=== PATIENT | female | born 1935 | race Caucasian/White ===

== ENCOUNTER 2016-08-16 14:22 | Inpatient (IN) | payer OTHER, MEDICARE ==
[~2016-08-16] VITALS: Ht 149.9 cm; Wt 60.0 kg
[~2016-08-16 14:22] MED LIST: ASPI325T24 PO; DIGO0.12 PO; ENAL20TA PO; GLIP5 PO; GLUCTAB PO; LASI20TA PO; LOVA40TA PO; NIAC500T18 PO; NIFE20 PO; PROP1TAB66 PO; TERA5CAP3 PO
[2016-08-16 14:24] VITALS: BP 168/77; PULSE 105; RESP 15; TEMP 98.2; O2SAT 95
[2016-08-16] MEDS ORDERED: FLAX10002 PO (15:21)
[2016-08-16] MEDS ORDERED: GLIP5TAB8 PO (15:21)
[2016-08-16] MEDS ORDERED: MULT-135 PO (15:21)
[2016-08-16] MEDS ORDERED: ENAL20TA PO (15:21)
[2016-08-16] MEDS ORDERED: METF1000 PO (15:21)
[2016-08-16] MEDS ORDERED: PROP10TA6 PO (15:21)
[2016-08-16] MEDS ORDERED: GARL1CAP PO (15:21)
[2016-08-16] MEDS ORDERED: ALA1CRE TOP (15:21)
[2016-08-16] MEDS ORDERED: [UNRECOGNIZED DRUG - CODE] PO (15:21)
[2016-08-16] MEDS ORDERED: ASPI-156 PO (15:21)
[2016-08-16] MEDS ORDERED: NIFE1TAB85 PO (15:21)
[2016-08-16] MEDS ORDERED: OMEG5CAP PO (15:21)
[2016-08-16] MEDS ORDERED: NITR1SUB3 SL (15:21)
[2016-08-16] MEDS ORDERED: ATOR1TAB18 PO (15:21)
[2016-08-16] MEDS ORDERED: FURO20TA PO (15:21)
[2016-08-16] MEDS ORDERED: FENO160T PO (15:21)
[2016-08-16] MEDS ORDERED: DIGO0.25 PO (15:21)
[2016-08-16] MEDS ORDERED: CALC1TAB87 PO (15:23)
[2016-08-16] MEDS ORDERED: SODIUM CHLOR 0.9% 1000 ML INJ 1,000 ML IV SCH (15:24)
[2016-08-16] MEDS ORDERED: PANTOPRAZOLE INJ 80 MG in SODIUM CHLORIDE 0.9% INJ 35 ML IV ONE (15:30)
--- NOTE | 2016-08-16 15:32 | PD ---
HPI Chief Complaint: GI Complaint Time Seen by Provider: 15:02 Travel History International Travel<30 days: No Contact w/Intl Traveler<30days: No Traveled to known affect area: No History of Present Illness HPI 81-year-old female complains of bloody stool. Patient states the symptoms started this afternoon. Patient denies abdominal pain. Patient denies any nausea vomiting diarrhea. Patient denies any dysuria or frequency. Patient denies any vaginal discharge or bleeding. Patient denies any history GI bleed in the past. Patient on Ecotrin 325 mg daily. Patient has history hypertension , diabetes, dyslipidemia. Patient's on digoxin for rapid heartbeat. Patient denies any headache. Patient denies any chest pain or shortness of breath. PFSH Past Medical History Hx Anticoagulant Therapy: No Blood Disorders: No Cancer: No Cardiac Catheterization: Yes Cardiovascular Problems: Yes (STENTS) High Cholesterol: Yes Chemotherapy: No Cerebrovascular Accident: No Coronary Artery Disease: Yes Diabetes: Yes Patient Takes Glucophage: Yes Endocrine: Yes Gastrointestinal Disorders: No Genitourinary: No Hypertension: Yes Immune Disorder: No Implanted Vascular Access Dvce: No Musculoskeletal: No Neurologic: No Psychiatric: No Reproductive: No Respiratory: No Past Surgical History Appendectomy: Yes Coronary Stent: Yes (X3) Hysterectomy: Yes Tonsillectomy: Yes Other Surgery: Yes Social History Alcohol Use: No Tobacco Use: No Substance Use: No Allergies-Medications (Allergen,Severity, Reaction): Coded Allergies: No Known Allergies (Unverified , 01/10/14) Reported Meds & Prescriptions Reported Meds & Active Scripts Active Reported Calcium 600 with Vitamin D (Calcium Carbonate-Cholecalciferol) 600-400 mg-Unit Tab 1 Tab PO BID Ala Gualberto (Hydrocortisone (Topical)) 1 % Cre 1 Applic TOP DAILY Garlic 1,000 Mg Cap 1,000 Mg PO DAILY Fish Oil 1200 mg ([place]-3 Fatty Acids) 1 Cap Cap 1,200 Mg PO DAILY Flax Seed Oil 1000 mg (Flaxseed (Linseed)) 1 Cap Cap 1,000 Mg PO DAILY Multi Vitamin (Multiple Vitamin) 1 Tab Tab 1 Tab PO DAILY Ecotrin (Aspirin) 325 Mg Tab 325 Mg PO DAILY Nitroglycerin SL (Nitroglycerin) 0.4 Mg Subl 0.4 Mg SL DIRECTED PRN ONE TABLET UNDER THE TONGUE NEEDED FOR CHEST PAIN, MAY REPEAT EVERY FIVE MINUTES FOR A TOTAL OF 3 DOSES OR CALL 911 IF NO RELIEF Propranolol (Propranolol HCl) 10 Mg Tab 10 Mg PO DIRECTED PRN Niacin TR (Niacin) 500 Caper 500 Mg PO BID Glipizide 5 Mg Tab 2.5 Mg PO BIDAC Take 30 minutes before a meal Furosemide 20 Mg Tab 20 Mg PO BID Enalapril (Enalapril Maleate) 20 Mg Tab 20 Mg PO BID Digoxin 0.25 Mg Tab 0.25 Mg PO DAILY Atorvastatin (Atorvastatin Calcium) 80 Mg Tab 80 Mg PO HS Fenofibrate 160 Mg Tab 160 Mg PO DAILY Procardia XL (Nifedipine) 30 Mg Tab 30 Mg PO BID Metformin (Metformin HCl) 1,000 Mg Tab 1,000 Mg PO AC DINNER With meals Review of Systems General / Constitutional: No: Fever Eyes: No: Visual changes HENT: No: Headaches Cardiovascular: No: Chest Pain or Discomfort Respiratory: No: Shortness of Breath Gastrointestinal: Positive: Hematochezia, No: Abdominal Pain Genitourinary: No: Dysuria Musculoskeletal: No: Pain Skin: No Rash Neurologic: No: Weakness Psychiatric: No: Depression Endocrine: No: Polydipsia Hematologic/Lymphatic: No: Easy Bruising Physical Exam Narrative GENERAL: Well-nourished, well-developed patient. SKIN: Warm and dry. HEAD: Normocephalic. EYES: No scleral icterus. No injection or drainage. NECK: Supple, trachea midline. No JVD or lymphadenopathy. CARDIOVASCULAR: Regular rate and rhythm without murmurs, gallops, or rubs. RESPIRATORY: Breath sounds equal bilaterally. No accessory muscle use. GASTROINTESTINAL: Abdomen soft, non-tender, nondistended. Rectal exam reveals bright red blood per rectum. Hemoccult positive. No active bleeding coming out from rectum. MUSCULOSKELETAL: No cyanosis, or edema. BACK: Nontender without obvious deformity. No CVA tenderness. Neurologic exam normal. Data Data Last Documented VS Vital Signs Date Time Temp Pulse Resp B/P Pulse Ox O2 Delivery O2 Flow Rate FiO2 08/16/16 15:43 97 Nasal Cannula 2 08/16/16 15:01 18 08/16/16 14:24 98.2 105 168/77 Orders Complete Blood Count With Diff (08/16/16 15:24) Comprehensive Metabolic Panel (08/16/16 15:24) Prothrombin Time / Inr (Pt) (08/16/16 15:24) Act Partial Throm Time (Ptt) (08/16/16 15:24) Urinalysis - C+S If Indicated (08/16/16 15:24) Type And Screen (08/16/16 15:24) Chest, Single Ap (08/16/16 15:24) Ecg Monitoring (08/16/16 15:24) Iv Access Insert/Monitor (08/16/16 15:24) Oximetry (08/16/16 15:24) Sodium Chlor 0.9% 1000 Ml Inj (Ns 1000 M (08/16/16 15:24) Pantoprazole Inj (Protonix Inj) (08/16/16 15:30) Pantoprazole Inj (Protonix Inj) (08/16/16 15:30) Labs Laboratory Tests Test 08/16/16 08/16/16 15:31 15:40 White Blood Count 8.1 TH/MM3 Red Blood Count 3.83 MIL/MM3 Hemoglobin 11.2 GM/DL Hematocrit 33.1 % Mean Corpuscular Volume 86.5 FL Mean Corpuscular Hemoglobin 29.1 PG Mean Corpuscular Hemoglobin 33.7 % Concent Red Cell Distribution Width 15.1 % Platelet Count 286 TH/MM3 Mean Platelet Volume 7.1 FL Neutrophils (%) (Auto) 59.9 % Lymphocytes (%) (Auto) 26.9 % Monocytes (%) (Auto) 10.4 % Eosinophils (%) (Auto) 2.1 % Basophils (%) (Auto) 0.7 % Neutrophils # (Auto) 4.9 TH/MM3 Lymphocytes # (Auto) 2.2 TH/MM3 Monocytes # (Auto) 0.8 TH/MM3 Eosinophils # (Auto) 0.2 TH/MM3 Basophils # (Auto) 0.1 TH/MM3 CBC Comment DIFF FINAL Differential Comment Prothrombin Time 11.5 SEC Prothromb Time International 1.0 RATIO Ratio Activated Partial 23.8 SEC Thromboplast Time Sodium Level 139 MEQ/L Potassium Level 4.1 MEQ/L Chloride Level 103 MEQ/L Carbon Dioxide Level 27.8 MEQ/L Anion Gap 8 MEQ/L Blood Urea Nitrogen 25 MG/DL Creatinine 1.62 MG/DL Estimat Glomerular Filtration 30 ML/MIN Rate Random Glucose 95 MG/DL Calcium Level 9.6 MG/DL Total Bilirubin 0.3 MG/DL Aspartate Amino Transf 29 U/L (AST/SGOT) Alanine Aminotransferase 38 U/L (ALT/SGPT) Alkaline Phosphatase 29 U/L Total Protein 7.7 GM/DL Albumin 4.0 GM/DL Blood Type A POSITIVE Antibody Screen NEGATIVE Blood Bank Comment Urine Color LIGHT-YELLOW Urine Turbidity CLEAR Urine pH 8.0 Urine Specific [place] 1.006 Urine Protein 30 mg/dL Urine Glucose (UA) NEG mg/dL Urine Ketones NEG mg/dL Urine Occult Blood MOD Urine Nitrite NEG Urine Bilirubin NEG Urine Urobilinogen LESS THAN 2.0 MG/DL Urine Leukocyte Esterase NEG Urine RBC 36 /hpf Urine WBC 1 /hpf Urine Squamous Epithelial 1 /hpf Cells Urine Bacteria RARE /hpf Urine Mucus FEW /lpf Microscopic Urinalysis Comment CULT NOT INDICATED MDM Medical Decision Making Medical Screen Exam Complete: Yes Emergency Medical Condition: Yes Interpretation(s) 1645 PM. CBC within normal limit. Hemoglobin 11.2 hematocrit 33.1. BUN 25. Creatinine 1.62. UA positive for RBC and few bacteria. Differential Diagnosis Differential diagnosis including hemorrhoidal bleed, AV malformation, diverticulosis, diverticulitis, GI lesions. Narrative Course 81-year-old female with bloody stool. Normal saline solution 1 25 cc an hour. Protonix bolus and drip started. Diagnosis Primary Impression: GI bleed Qualified Code: K92.2 - Gastrointestinal hemorrhage, unspecified gastrointestinal hemorrhage type Admitting Information Admitting Physician Requests: Admit Mc Valera MD Aug 16, 2016 15:31
[2016-08-16 15:43] VITALS: O2SAT 97
[2016-08-16 15:46] LABS: AUTOMATED NEUTROPHIL # 4.9 TH/MM3 (1.8-7.7); BASOPHIL # 0.1 TH/MM3 (0-0.2); BASOPHIL % 0.7 % (0.0-2.0); EOSINOPHIL # 0.2 TH/MM3 (0-0.4); EOSINOPHIL % 2.1 % (0.0-4.0); HEMATOCRIT 33.1 % (35.0-46.0); HEMO FLAGS DIFF FINAL; LYMPH % 26.9 % (9.0-44.0); LYMPHOCYTE # 2.2 TH/MM3 (1.0-4.8); MEAN CELL VOLUME 86.5 FL (80.0-100.0); MEAN CORPUSCULAR HEMOGLOBIN 29.1 PG (27.0-34.0); MEAN CORPUSCULAR HGB CONC 33.7 % (32.0-36.0); MONO % 10.4 % (0.0-8.0); NEUT % 59.9 % (16.0-70.0); PLATELET COUNT 286 TH/MM3 (150-450); RED BLOOD COUNT 3.83 MIL/MM3 (4.00-5.30); RED CELL DISTRIBUTION WIDTH 15.1 % (11.6-17.2); WHITE BLOOD COUNT 8.1 TH/MM3 (4.0-11.0)
[2016-08-16 15:54] LABS: BACTERIA, URINE RARE /hpf; BLOOD, URINE MOD (NEG); COMMENT (UR) CULT NOT INDICATED; CULTURE IF INDICATED CULT NOT INDICATED; GLUCOSE,URINE NEG (NEG); KETONE, URINE NEG (NEG); MUCUS URINE FEW /lpf (OCC); NITRITE,URINE NEG (NEG); SQUAMOUS EPITHELIAL CELL URINE 1 /hpf (0-5); URINE COLOR LIGHT-YELLOW (YELLW/STRAW)
[2016-08-16] MEDS: PANTOPRAZOLE INJ 80 MG in SODIUM CHLORIDE 0.9% INJ 100 ML IV SCH ×2 (15:54→23:43)
[2016-08-16 15:58] LABS: APTT (PATIENT) 23.8 SEC (24.3-30.1); PROTHROMBIN TIME - PATIENT 11.5 SEC (9.8-11.6)
[2016-08-16 16:00] LABS: ALT (GPT) 38 U/L (10-53); ANION GAP 8 MEQ/L (5-15); AST (GOT) 29 U/L (15-37); BICARBONATE 27.8 MEQ/L (21.0-32.0); BLOOD UREA NITROGEN 25 MG/DL (7-18); CHLORIDE 103 MEQ/L (98-107); GLOMERULAR FILTRATION RATE 30 ML/MIN (>89); POTASSIUM 4.1 MEQ/L (3.5-5.1); SODIUM (NA) 139 MEQ/L (136-145)
[2016-08-16 16:03] LABS: ALKALINE PHOSPHATASE 29 U/L (45-117); TOTAL BILIRUBIN ADULT 0.3 MG/DL (0.2-1.0)
--- NOTE | 2016-08-16 16:51 | RADRPT ---
EXAM DATE/TIME: 08/16/2016 16:22 [place] COMPARISON: No previous studies available for comparison. INDICATIONS : Evaluate lung status. Rectal bleeding that started today. MEDICAL HISTORY : Hypertension. Diabetes. SURGICAL HISTORY : Cardiac stents. ENCOUNTER: Initial ACUITY: 1 day PAIN SCORE: 0/10 LOCATION: Bilateral chest FINDINGS: The lungs are clear.The heart is minimally enlarged. The pulmonary vascularity is normal. There is no evidence for infiltrate or failure. The portion of the bony skeleton visualized is unremarkable. CONCLUSION: Compensated cardiomegaly otherwise negative. Walter Underwood MD FACR on August 16, 2016 at 16:49 Board Certified Radiologist. This report was verified electronically.
[2016-08-16 17:00] VITALS: BP 162/79; PULSE 89; RESP 19; O2SAT 95
--- NOTE | 2016-08-16 17:40 | HHI.HP ---
cc: Ilya Morales MD [facility] Ilya Morales MD Admission Diagnosis GI bleed Diagnoses: (1) GI bleed Diagnosis: Principal (2) Hypertension (3) Diabetes mellitus (4) Hyperlipidemia (5) Coronary artery disease Chief Complaint: GI bleed Travel History International Travel<30 Days: No Contact w/Intl Traveler <30 Da: No Traveled to Known Affected Are: No History of Present Illness The patient is an 81-year-old female who presents to the emergency department with complaint of blood in her stool. She states that she had a normal bowel movement this morning. A couple hours later she felt the need to have a bowel movement again. This time it was all blood and clots". She states she has had multiple episodes of bloody stools after that including one in the ER. She denies vaginal bleeding. Denies abdominal pain, nausea, vomiting. She takes 325 mg aspirin daily. 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 Review of Systems Constitutional: DENIES: Fever, Chills, Night Sweats Eyes: DENIES: Blurred vision, Vision loss Ears, nose, mouth, throat: DENIES: Hearing loss Respiratory: DENIES: Cough, Wheezing, Sputum production, Shortness of breath Cardiovascular: DENIES: Chest pain, Palpitations, Dyspnea on Exertion, Lower Extremity Edema Gastrointestinal: COMPLAINS OF: Bloody stools, DENIES: Abdominal pain, Constipation, Diarrhea, Nausea, Vomiting Genitourinary: DENIES: Urinary frequency, Urinary incontinence, Urgency, Hematuria, Dysuria, Nocturia Musculoskeletal: DENIES: Joint pain, Muscle aches Integumentary: DENIES: Pruritus, Rash Hematologic/lymphatic: DENIES: Bruising Neurologic: DENIES: Headache Past Family Social History Past Medical History Coronary artery disease Hyperlipidemia Hypertension Diabetes mellitus Past Surgical History Cardiac catheterization with coronary artery stent 3 Hysterectomy Appendectomy Tonsillectomy Reported Medications Calcium 600 with Vitamin D (Calcium Carbonate-Cholecalciferol) 600-400 mg-Unit Tab 1 Tab PO BID Ala Gualberto (Hydrocortisone (Topical)) 1 % Cre 1 Applic TOP DAILY Garlic 1,000 Mg Cap 1,000 Mg PO DAILY Fish Oil 1200 mg ([place]-3 Fatty Acids) 1 Cap Cap 1,200 Mg PO DAILY Flax Seed Oil 1000 mg (Flaxseed (Linseed)) 1 Cap Cap 1,000 Mg PO DAILY Multi Vitamin (Multiple Vitamin) 1 Tab Tab 1 Tab PO DAILY Ecotrin (Aspirin) 325 Mg Tab 325 Mg PO DAILY Nitroglycerin SL (Nitroglycerin) 0.4 Mg Subl 0.4 Mg SL DIRECTED PRN ONE TABLET UNDER THE TONGUE NEEDED FOR CHEST PAIN, MAY REPEAT EVERY FIVE MINUTES FOR A TOTAL OF 3 DOSES OR CALL 911 IF NO RELIEF Propranolol (Propranolol HCl) 10 Mg Tab 10 Mg PO DIRECTED PRN Niacin TR (Niacin) 500 Caper 500 Mg PO BID Glipizide 5 Mg Tab 2.5 Mg PO BIDAC Take 30 minutes before a meal Furosemide 20 Mg Tab 20 Mg PO BID Enalapril (Enalapril Maleate) 20 Mg Tab 20 Mg PO BID Digoxin 0.25 Mg Tab 0.25 Mg PO DAILY Atorvastatin (Atorvastatin Calcium) 80 Mg Tab 80 Mg PO HS Fenofibrate 160 Mg Tab 160 Mg PO DAILY Procardia XL (Nifedipine) 30 Mg Tab 30 Mg PO BID Metformin (Metformin HCl) 1,000 Mg Tab 1,000 Mg PO AC DINNER With meals Allergies: Coded Allergies: No Known Allergies (Unverified , 01/10/14) Family History Cancer Multiple sclerosis Social History Denies alcohol, tobacco, or illicit drug use. Physical Exam Vital Signs Vital Signs Date Time Temp Pulse Resp B/P Pulse Ox O2 Delivery O2 Flow Rate FiO2 08/16/16 17:00 89 19 162/79 95 Room Air 08/16/16 15:43 97 Nasal Cannula 2 08/16/16 15:01 18 08/16/16 14:24 98.2 105 15 168/77 95 Physical Exam GENERAL: Elderly female in no acute distress. HEENT: Normocephalic, atraumatic. Pupils equal, round and reactive. Extraocular movements intact. No scleral icterus. No injection or drainage. Oropharynx is clear. Mucous membranes are moist. CARDIOVASCULAR: Regular rate and rhythm without murmurs, gallops, or rubs. RESPIRATORY: Clear to auscultation. No wheezes, rales, or rhonchi. Breathing is non-labored. GASTROINTESTINAL: Abdomen soft, non-tender, nondistended. EXTREMITIES: No lower extremity edema. No calf tenderness. PSYCH: Alert and oriented x 3. Laboratory Laboratory Tests Test 08/16/16 08/16/16 15:31 15:40 White Blood Count 8.1 Red Blood Count 3.83 Hemoglobin 11.2 Hematocrit 33.1 Mean Corpuscular Volume 86.5 Mean Corpuscular Hemoglobin 29.1 Mean Corpuscular Hemoglobin 33.7 Concent Red Cell Distribution Width 15.1 Platelet Count 286 Mean Platelet Volume 7.1 Neutrophils (%) (Auto) 59.9 Lymphocytes (%) (Auto) 26.9 Monocytes (%) (Auto) 10.4 Eosinophils (%) (Auto) 2.1 Basophils (%) (Auto) 0.7 Neutrophils # (Auto) 4.9 Lymphocytes # (Auto) 2.2 Monocytes # (Auto) 0.8 Eosinophils # (Auto) 0.2 Basophils # (Auto) 0.1 CBC Comment DIFF FINAL Differential Comment Prothrombin Time 11.5 Prothromb Time International 1.0 Ratio Activated Partial 23.8 Thromboplast Time Sodium Level 139 Potassium Level 4.1 Chloride Level 103 Carbon Dioxide Level 27.8 Anion Gap 8 Blood Urea Nitrogen 25 Creatinine 1.62 Estimat Glomerular Filtration 30 Rate Random Glucose 95 Calcium Level 9.6 Total Bilirubin 0.3 Aspartate Amino Transf 29 (AST/SGOT) Alanine Aminotransferase 38 (ALT/SGPT) Alkaline Phosphatase 29 Total Protein 7.7 Albumin 4.0 Blood Type A POSITIVE Antibody Screen NEGATIVE Blood Bank Comment Urine Color LIGHT-YELLOW Urine Turbidity CLEAR Urine pH 8.0 Urine Specific [place] 1.006 Urine Protein 30 Urine Glucose (UA) NEG Urine Ketones NEG Urine Occult Blood MOD Urine Nitrite NEG Urine Bilirubin NEG Urine Urobilinogen LESS THAN 2.0 Urine Leukocyte Esterase NEG Urine RBC 36 Urine WBC 1 Urine Squamous Epithelial 1 Cells Urine Bacteria RARE Urine Mucus FEW Microscopic Urinalysis Comment CULT NOT INDICATED Result Diagram: 08/16/16 1531 08/16/16 1531 Assessment and Plan Assessment and Plan 1. GI bleed: Hemoccult positive in the ER. Monitor H&H. Transfuse as necessary. Consult GI. 2. Coronary artery disease: Currently asymptomatic. Continue home medications. 3. Hypertension: Continue propranolol, enalapril, Procardia. 4. Diabetes mellitus: Hold metformin. Monitor Accu-Cheks and cover with sliding scale insulin. 5. Acute kidney injury superimposed on chronic kidney disease stage III: Gentle IV fluid hydration. Monitor labs. 6. DVT prophylaxis: SCDs, GRETA hose. Avoid chemical prophylaxis secondary to GI bleed. Problem Qualifiers (1) GI bleed: Qualified Code: K92.2 - Gastrointestinal hemorrhage, unspecified gastrointestinal hemorrhage type Michael Plaza MD Aug 16, 2016 17:40
[2016-08-16] MEDS ORDERED: ONDANSETRON HCL 4 MG/2 ML VIAL IVP PRN (18:15)
[2016-08-16] MEDS ORDERED: SODIUM CHLORIDE 0.9% FLUSH 5 ML FLUSH FLUSH PRN (18:15)
[2016-08-16] MEDS ORDERED: DEXTROSE 50% IN WATER 50 ML VIAL(D50) IV PUSH PRN (18:15)
[2016-08-16] MEDS ORDERED: GLUCAGON 1 MG/ML VIAL OTHER PRN (18:15)
[2016-08-16] MEDS ORDERED: NALOXONE HCL 0.4 MG/ML AMP IV PRN (18:15)
[2016-08-16] MEDS: SODIUM CHLOR 0.9% 1000 ML INJ 1,000 ML IV SCH (18:39)
[2016-08-16 20:00] VITALS: PULSE 82
[2016-08-16] MEDS: INSULIN ASPART SUPPLEMENTAL SCALE SQ SCH (21:00)
[2016-08-16 21:45] VITALS: BP 163/77; PULSE 83; RESP 17; TEMP 98.1; O2SAT 94
[2016-08-16 21:57] LABS: HEMATOCRIT 31.7 % (35.0-46.0); REVIEW FLAG FINAL
[2016-08-16] MEDS: ENALAPRIL MALEATE 10 MG TAB PO SCH (23:42)
[2016-08-16] MEDS: NIFEdipine 30 MG SUSTAINED RELEASE TAB PO SCH (23:42)
[2016-08-16] MEDS: NIACIN 500 MG EXTENDED RELEASE TAB PO SCH (23:42)
[2016-08-16] MEDS: CALCIUM/VITAMIN D 250 MG/125 U TAB PO SCH (23:42)
[2016-08-16] MEDS: ACETAMINOPHEN 325 MG TAB PO PRN (23:42)
[2016-08-16] MEDS: ATORVASTATIN 80 MG TAB PO SCH (23:43)
[2016-08-16] MEDS: SODIUM CHLORIDE 0.9% FLUSH 5 ML FLUSH FLUSH SCH (23:49)
[2016-08-17] VITALS (7 sets, daily range): BP systolic 121–164; BP diastolic 60–74; PULSE 78–95; RESP 17–18; TEMP 96.2–97.7; O2SAT 93–96
[2016-08-17 04:42] LABS: AUTOMATED NEUTROPHIL # 4.8 TH/MM3 (1.8-7.7); BASOPHIL % 0.5 % (0.0-2.0); EOSINOPHIL # 0.2 TH/MM3 (0-0.4); EOSINOPHIL % 2.2 % (0.0-4.0); HEMO FLAGS DIFF FINAL; LYMPH % 26.9 % (9.0-44.0); LYMPHOCYTE # 2.1 TH/MM3 (1.0-4.8); MEAN CELL VOLUME 86.3 FL (80.0-100.0); MEAN CORPUSCULAR HEMOGLOBIN 30.2 PG (27.0-34.0); MONO % 8.6 % (0.0-8.0); NEUT % 61.8 % (16.0-70.0); PLATELET COUNT 271 TH/MM3 (150-450); RED BLOOD COUNT 3.48 MIL/MM3 (4.00-5.30); RED CELL DISTRIBUTION WIDTH 15.3 % (11.6-17.2); WHITE BLOOD COUNT 7.8 TH/MM3 (4.0-11.0)
[2016-08-17 05:02] LABS: BICARBONATE 26.4 MEQ/L (21.0-32.0); POTASSIUM 3.8 MEQ/L (3.5-5.1)
[2016-08-17] MEDS: FENOFIBRATE 145 MG TAB PO SCH (08:44)
[2016-08-17] MEDS: ENALAPRIL MALEATE 10 MG TAB PO SCH ×3 (08:44→21:01)
[2016-08-17] MEDS: DIGOXIN 0.25 MG TAB PO SCH (08:45)
[2016-08-17] MEDS: MULTIVITAMIN TAB PO SCH (08:45)
[2016-08-17] MEDS: NIFEdipine 30 MG SUSTAINED RELEASE TAB PO SCH ×2 (08:45→21:01)
[2016-08-17] MEDS: NIACIN 500 MG EXTENDED RELEASE TAB PO SCH ×2 (08:45→21:01)
[2016-08-17] MEDS: CALCIUM/VITAMIN D 250 MG/125 U TAB PO SCH ×2 (08:46→21:04)
[2016-08-17] MEDS: SODIUM CHLORIDE 0.9% FLUSH 5 ML FLUSH FLUSH SCH ×2 (08:53→21:00)
[2016-08-17] MEDS: INSULIN ASPART SUPPLEMENTAL SCALE SQ SCH ×3 (11:00→21:00)
[2016-08-17 11:21] LABS: HEMATOCRIT 31.4 % (35.0-46.0); REVIEW FLAG FINAL
[2016-08-17] MEDS: PANTOPRAZOLE INJ 80 MG in SODIUM CHLORIDE 0.9% INJ 100 ML IV SCH ×2 (11:38→23:55)
--- NOTE | 2016-08-17 13:13 | HHI.PR ---
Subjective Remarks Follow up GI bleed, diabetes. Patient has not had any further bleeding. States that she feels better today. No abdominal pain, nausea, vomiting. No bowel movement today. Objective Vitals Vital Signs Date Time Temp Pulse Resp B/P Pulse Ox O2 Delivery O2 Flow Rate FiO2 08/17/16 12:32 96.7 81 18 163/74 08/17/16 08:36 97.5 94 18 164/71 96 08/17/16 05:00 97.0 78 17 162/72 96 08/17/16 00:30 97.7 80 18 156/70 95 08/16/16 21:45 98.1 83 17 163/77 94 08/16/16 20:00 82 08/16/16 17:00 89 19 162/79 95 Room Air 08/16/16 15:43 97 Nasal Cannula 2 08/16/16 15:01 18 08/16/16 14:24 98.2 105 15 168/77 95 I/O 08/16/16 08/16/16 08/16/16 08/17/16 08/17/16 08/17/16 07:00 15:00 23:00 07:00 15:00 23:00 Intake Total 0 ml Output Total 450 ml Balance -450 ml 0 ml Intake Oral 0 ml Output Urine Total 450 ml # Voids 2 2 # Bowel Movements 1 0 Result Diagram: 08/17/16 1059 08/17/16 0411 Imaging Last Impressions Chest X-Ray 08/16/16 1524 Signed Impressions: Service Date/Time: Tuesday, August 16, 2016 16:22 - CONCLUSION: Compensated cardiomegaly otherwise negative. Walter Underwood MD FACR Objective Remarks General: Elderly female in no acute distress. Heart: Regular rate and rhythm. No murmur. Lungs: Clear to auscultation bilaterally. No wheezes, rales, or rhonchi. Breathing is nonlabored. Abdomen: Soft, nontender, nondistended. Extremities: No lower extremity edema. SCDs. Psych: Alert and oriented. Urinary Catheter: No Vascular Central Line Catheter: No A/P Problem List: (1) GI bleed ICD Code: K92.2 Status: Acute (2) Hypertension ICD Code: I10 Status: Chronic (3) Diabetes mellitus ICD Code: E11.9 Status: Chronic (4) Hyperlipidemia ICD Code: E78.5 Status: Chronic (5) Coronary artery disease ICD Code: I25.10 Status: Chronic Assessment and Plan 1. GI bleed: Hemoccult positive in the ER. H&H decreased slightly, but has then been stable. Transfuse as necessary. GI consult pending. 2. Coronary artery disease: Currently asymptomatic. Continue home medications. 3. Hypertension: Continue propranolol, enalapril, Procardia. 4. Diabetes mellitus: Hold metformin. Monitor Accu-Cheks and cover with sliding scale insulin. 5. Acute kidney injury superimposed on chronic kidney disease stage III: Gentle IV fluid hydration. Monitor labs. Creatinine slightly better today. 6. DVT prophylaxis: GRETA Elliott. Avoid chemical prophylaxis secondary to GI bleed. Problem Qualifiers (1) Diabetes mellitus: Michael Plaza MD Aug 17, 2016 13:13
[2016-08-17] MEDS: ACETAMINOPHEN 325 MG TAB PO PRN (14:15)
[2016-08-17 16:52] LABS: HEMATOCRIT 31.6 % (35.0-46.0); REVIEW FLAG FINAL
[2016-08-17] MEDS ORDERED: PEG (High)/E-LYTE SOLN 4000 ML BTL PO ONE (18:00)
[2016-08-17] MEDS: SODIUM CHLOR 0.9% 1000 ML INJ 1,000 ML IV SCH (18:30)
[2016-08-17] MEDS: ATORVASTATIN 80 MG TAB PO SCH (21:01)
--- NOTE | 2016-08-17 21:13 | PD.CONS ---
HPI History of Present Illness This is a 81 year old female who presents to the emergency room with complaints of bright red blood per rectum this is her very first episode she's never had anything like this before her last colonoscopy was about 10 years ago she denies any abdominal pain denies any nausea vomiting denies any diarrhea constipation fever chills denies any lightheadedness or dizziness denies any chest pain or shortness of breath she denies any NSAID use but does take a full aspirin on a daily basis PFSH Past Medical History Coronary artery disease Hyperlipidemia Hypertension Diabetes mellitus Past Surgical History Cardiac catheterization with coronary artery stent 3 Hysterectomy Appendectomy Tonsillectomy Coded Allergies: No Known Allergies (Unverified , 01/10/14) Medications Current Medications Sodium Chloride 1,000 ml @ 125 mls/hr Q8H IV Last administered on 08/16/16 15 :46; Start 08/16/16 at 15:24; Stop 08/16/16 at 18:15; Status DC Pantoprazole Sodium 80 mg/ Sodium Chloride 35 ml @ 420 mls/hr ONCE ONCE IV Last administered on 08/16/16 15:47; Start 08/16/16 at 15:30; Stop 08/16/16 at 15:34; Status DC Pantoprazole Sodium/Sodium Chloride (Protonix Inj/NS Inj) 100 ml @ 10 mls/hr Q10H IV Last administered on 08/17/16 11:38; Start 08/16/16 at 15:30 IV Flush (NS Flush) 2 ml UNSCH PRN FLUSH FLUSH AFTER USING IV ACCESS; Start at 18:15 IV Flush (NS Flush) 2 ml BID FLUSH Last administered on 08/16/16 23:49; Start 08/16/16 at 21:00 Acetaminophen (Tylenol) 650 mg Q4H PRN PO TEMP > 100.4 or headache Last administered on 08/17/16 14:15; Start 08/16/16 at 18:15 Ondansetron HCl (Zofran Inj) 4 mg Q6H PRN IVP NAUSEA OR VOMITING; Start at 18:15 Naloxone HCl (Narcan Inj) 0.4 mg UNSCH PRN IV SEE LABEL COMMENTS; Start at 18:15 Dextrose (D50w (Vial) Inj) 25 ml UNSCH PRN IV PUSH HYPOGLYCEMIA-SEE COMMENTS; Start 08/16/16 at 18:15 Glucagon (Glucagon Inj) 1 mg UNSCH PRN OTHER HYPOGLYCEMIA-SEE COMMENTS; Start 08/16/16 at 18:15 Insulin Aspart (NovoLOG SUPPLEMENTAL SCALE) 1 ACHS SLIDING SCALE SQ ; Start at 21:00 Atorvastatin Calcium (Lipitor) 80 mg HS PO Last administered on 08/17/16 21:01 ; Start 08/16/16 at 21:00 Calcium/Vitamin D (Oscal-D 250-125) 250 mg BID PO Last administered on 21:04; Start 08/16/16 at 21:00 Digoxin (Lanoxin) 0.25 mg DAILY PO Last administered on 08/17/16 08:45; Start 08/17/16 at 09:00 Enalapril Maleate (Vasotec) 20 mg BID PO Last administered on 08/17/16 08:44; Start 08/16/16 at 21:00 Fenofibrate (Tricor) 145 mg DAILY PO Last administered on 08/17/16 08:44; Start 08/17/16 at 09:00 Multivitamins (Theragran) 1 tab DAILY PO Last administered on 08/17/16 08:45; Start 08/17/16 at 09:00 Niacin (Slo-Niacin) 500 mg BID PO Last administered on 08/17/16 21:01; Start 08/16/16 at 21:00 Nifedipine 30 mg 30 mg BID PO Last administered on 08/17/16 21:01; Start 08/16 at 21:00 Sodium Chloride (NS 1000 ml Inj) 1,000 ml @ 42 mls/hr [id number] IV Last administered on 08/17/16 18:30; Start 08/16/16 at 18:15 Polyethylene Glycol/ Electrolytes (Colyte Liq) 4,000 ml ONCE ONCE PO Last administered on 08/17/16 18:29; Start 08/17/16 at 18:00; Stop 08/17/16 at 18:01 ; Status DC Family History Cancer Multiple sclerosis Social History Denies alcohol, tobacco, or illicit drug use. Review of Systems ROS Review of systems Patient denies any headache dizziness blurry vision, denies any chest pain shortness of breath cough fever chills, Denies any palpitations or fatigue denies any polyuria dysuria hematuria, denies any numbness tingling or weakness, denies any skin rash pruritus or jaundice, denies any easy bruising or bleeding tendency, denies any recent change in mood GI Exam Vitals I&O Vital Signs Date Time Temp Pulse Resp B/P Pulse Ox O2 Delivery O2 Flow Rate FiO2 08/17/16 17:13 96.2 87 18 155/68 93 08/17/16 15:15 19 08/17/16 12:32 96.7 81 18 163/74 08/17/16 08:36 97.5 94 18 164/71 96 08/17/16 05:00 97.0 78 17 162/72 96 08/17/16 00:30 97.7 80 18 156/70 95 08/16/16 21:45 98.1 83 17 163/77 94 I/O 08/16/16 08/16/16 08/16/16 08/17/16 08/17/16 08/17/16 07:00 15:00 23:00 07:00 15:00 23:00 Intake Total 0 ml Output Total 450 ml Balance -450 ml 0 ml Intake Oral 0 ml Output Urine Total 450 ml # Voids 2 2 2 # Bowel Movements 1 0 Imaging Last Impressions Chest X-Ray 08/16/16 1524 Signed Impressions: Service Date/Time: Tuesday, August 16, 2016 16:22 - CONCLUSION: Compensated cardiomegaly otherwise negative. Walter Underwood MD FACR Laboratory Test 08/16/16 08/17/16 08/17/16 08/17/16 21:11 04:11 10:59 16:10 Hemoglobin 10.5 GM/DL 10.5 GM/DL 10.8 GM/DL 10.6 GM/DL Hematocrit 31.7 % 30.0 % 31.4 % 31.6 % White Blood Count 7.8 TH/MM3 Red Blood Count 3.48 MIL/MM3 Mean Corpuscular Volume 86.3 FL Mean Corpuscular Hemoglobin 30.2 PG Mean Corpuscular Hemoglobin 35.0 % Concent Red Cell Distribution Width 15.3 % Platelet Count 271 TH/MM3 Mean Platelet Volume 7.0 FL Neutrophils (%) (Auto) 61.8 % Lymphocytes (%) (Auto) 26.9 % Monocytes (%) (Auto) 8.6 % Eosinophils (%) (Auto) 2.2 % Basophils (%) (Auto) 0.5 % Neutrophils # (Auto) 4.8 TH/MM3 Lymphocytes # (Auto) 2.1 TH/MM3 Monocytes # (Auto) 0.7 TH/MM3 Eosinophils # (Auto) 0.2 TH/MM3 Basophils # (Auto) 0.0 TH/MM3 CBC Comment DIFF FINAL Differential Comment Sodium Level 141 MEQ/L Potassium Level 3.8 MEQ/L Chloride Level 106 MEQ/L Carbon Dioxide Level 26.4 MEQ/L Anion Gap 9 MEQ/L Blood Urea Nitrogen 21 MG/DL Creatinine 1.22 MG/DL Estimat Glomerular Filtration 42 ML/MIN Rate Random Glucose 105 MG/DL Calcium Level 9.0 MG/DL Physical Examination HEENT: Pupils round and reactive to light; normocephalic; atraumatic; no jaundice. Throat is clear. NECK: Neck is supple, no JVD, no lymphadenopathy. CHEST: Chest is clear to auscultation and percussion. CARDIAC: Regular rate and rhythm with no murmur gallop or rubs. ABDOMEN: Soft, nondistended, nontender; no hepatosplenomegaly; bowel sounds are present in all four quadrants. EXTREMITIES: No clubbing, cyanosis, or edema. SKIN: Normal; no rash; no jaundice. PYRIDINE OPERATOR: No focal deficits; alert and oriented times three. Assessment and Plan Plan Patient with lower GI bleed currently stable hemodynamically Patient is advised a colonoscopy risks benefits and alternatives were discussed and she is agreeable I do agree with current supportive measures Monitor labs and vital signs and transfuse as needed Magdy Castorena MD Aug 17, 2016 21:13
[2016-08-18] VITALS: BP 125/65; PULSE 89; RESP 17; TEMP 98.1; O2SAT 96
[2016-08-18 00:35] LABS: HEMATOCRIT 34.5 % (35.0-46.0); REVIEW FLAG FINAL
[2016-08-18 04:00] VITALS: BP 125/68; PULSE 88; RESP 19; TEMP 97.6; O2SAT 95
[2016-08-18 04:13] LABS: AUTOMATED NEUTROPHIL # 4.6 TH/MM3 (1.8-7.7); BASOPHIL % 0.4 % (0.0-2.0); EOSINOPHIL # 0.1 TH/MM3 (0-0.4); EOSINOPHIL % 1.6 % (0.0-4.0); HEMATOCRIT 30.8 % (35.0-46.0); HEMO FLAGS DIFF FINAL; LYMPH % 24.7 % (9.0-44.0); LYMPHOCYTE # 1.8 TH/MM3 (1.0-4.8); MEAN CELL VOLUME 86.3 FL (80.0-100.0); MEAN CORPUSCULAR HEMOGLOBIN 29.1 PG (27.0-34.0); MEAN CORPUSCULAR HGB CONC 33.8 % (32.0-36.0); MONO % 9.1 % (0.0-8.0); NEUT % 64.2 % (16.0-70.0); PLATELET COUNT 265 TH/MM3 (150-450); RED BLOOD COUNT 3.57 MIL/MM3 (4.00-5.30); RED CELL DISTRIBUTION WIDTH 15.3 % (11.6-17.2); WHITE BLOOD COUNT 7.2 TH/MM3 (4.0-11.0)
[2016-08-18 04:32] LABS: BICARBONATE 22.3 MEQ/L (21.0-32.0)
[2016-08-18] MEDS: SODIUM CHLOR 0.9% 1000 ML INJ 1,000 ML IV SCH (05:47)
[2016-08-18] MEDS: INSULIN ASPART SUPPLEMENTAL SCALE SQ SCH ×3 (05:51→16:00)
[2016-08-18] MEDS ORDERED: METOPROLOL TARTRATE 25 MG TAB PO PRN (07:30)
[2016-08-18] MEDS ORDERED: INSULIN HUMAN REGULAR 1,000 UNITS/10 ML VIAL SQ PRN (07:30)
[2016-08-18] MEDS ORDERED: LACTATED RINGER'S 1000 ML IV SCH (07:30)
[2016-08-18] MEDS ORDERED: SODIUM CHLORID 0.9% 500 ML IV SCH (07:30)
[2016-08-18 08:52] VITALS: BP 119/88; PULSE 96; RESP 20; TEMP 98.2; O2SAT 93
[2016-08-18] MEDS: SODIUM CHLORIDE 0.9% FLUSH 5 ML FLUSH FLUSH SCH (09:00)
[2016-08-18] MEDS: FENOFIBRATE 145 MG TAB PO SCH (09:00)
[2016-08-18] MEDS: NIFEdipine 30 MG SUSTAINED RELEASE TAB PO SCH (09:00)
[2016-08-18] MEDS: ENALAPRIL MALEATE 10 MG TAB PO SCH (09:00)
[2016-08-18] MEDS: DIGOXIN 0.25 MG TAB PO SCH (09:00)
[2016-08-18 09:37] VITALS: O2SAT 92
[2016-08-18] MEDS: NIACIN 500 MG EXTENDED RELEASE TAB PO SCH (09:37)
[2016-08-18] MEDS: MULTIVITAMIN TAB PO SCH (09:39)
[2016-08-18] MEDS: CALCIUM/VITAMIN D 250 MG/125 U TAB PO SCH (09:39)
[2016-08-18] MEDS: PANTOPRAZOLE INJ 80 MG in SODIUM CHLORIDE 0.9% INJ 100 ML IV SCH ×2 (09:41→16:03)
--- NOTE | 2016-08-18 12:12 | HHI.PR ---
Subjective Remarks Follow-up GI bleed, diabetes. Patient just returned from colonoscopy. States that she has not been up out of bed. She feels hungry. No other complaints at this time. Objective Vitals Vital Signs Date Time Temp Pulse Resp B/P Pulse Ox O2 Delivery O2 Flow Rate FiO2 08/18/16 11:50 78 16 126/60 97 08/18/16 11:42 74 16 117/57 97 08/18/16 11:34 97.9 70 16 117/57 97 08/18/16 09:37 92 08/18/16 08:52 98.2 96 20 119/88 93 08/18/16 04:00 97.6 88 19 125/68 95 08/18/16 00:00 98.1 89 17 125/65 96 08/17/16 20:30 97.0 95 17 121/60 96 08/17/16 20:00 88 08/17/16 17:13 96.2 87 18 155/68 93 08/17/16 15:15 19 08/17/16 12:32 96.7 81 18 163/74 I/O 08/17/16 08/17/16 08/17/16 08/18/16 08/18/16 08/18/16 07:00 15:00 23:00 07:00 15:00 23:00 Intake Total 0 ml 3000 ml 774 ml 300 ml Balance 0 ml 3000 ml 774 ml 300 ml Intake Oral 0 ml 3000 ml 0 ml IV Total 774 ml Other 300 ml # Voids 2 2 6 4 # Bowel Movements 0 10 5 Result Diagram: 08/18/16 0356 08/18/16 0356 Imaging Last Impressions Chest X-Ray 08/16/16 1524 Signed Impressions: Service Date/Time: Tuesday, August 16, 2016 16:22 - CONCLUSION: Compensated cardiomegaly otherwise negative. Walter Underwood MD FACR Objective Remarks General: Elderly female in no acute distress. Heart: Regular rate and rhythm. No murmur. Lungs: Clear to auscultation bilaterally. No wheezes, rales, or rhonchi. Breathing is nonlabored. Abdomen: Soft, nontender, nondistended. Extremities: No lower extremity edema. SCDs. Psych: Alert and oriented. Urinary Catheter: No Vascular Central Line Catheter: No A/P Problem List: (1) GI bleed ICD Code: K92.2 Status: Acute (2) Hypertension ICD Code: I10 Status: Chronic (3) Diabetes mellitus ICD Code: E11.9 Status: Chronic (4) Hyperlipidemia ICD Code: E78.5 Status: Chronic (5) Coronary artery disease ICD Code: I25.10 Status: Chronic Assessment and Plan 1. GI bleed: Hemoccult positive in the ER. H&H is stable. Appreciate GI recommendations. Status post colonoscopy. 2. Coronary artery disease: Currently asymptomatic. Continue home medications. 3. Hypertension: Continue propranolol, enalapril, Procardia. 4. Diabetes mellitus: Hold metformin. Monitor Accu-Cheks and cover with sliding scale insulin. 5. Acute kidney injury superimposed on chronic kidney disease stage III: Gentle IV fluid hydration. Monitor labs. 6. DVT prophylaxis: SCDGRETA day. Avoid chemical prophylaxis secondary to GI bleed. Discharge Planning Plan for discharge when cleared by gastroenterology. PT eval ordered. Problem Qualifiers (1) Diabetes mellitus: Michael Plaza MD Aug 18, 2016 12:12
[2016-08-18 12:22] VITALS: BP 138/64; PULSE 82; RESP 18; TEMP 97.3; O2SAT 92
[2016-08-18] MEDS ORDERED: PROPOFOL 200 MG/20 ML AMP IV ONE (12:28)
[2016-08-18] MEDS ORDERED: DO NOT ADM ANY ANTICOAGULANT DRUGS XX PRN (12:45)
--- NOTE | 2016-08-18 17:00 | HHI.DCPOC ---
Discharge Care Plan Diagnosis: (1) Syncope (2) GI bleed (3) Diabetes mellitus (4) Hypertension (5) Coronary artery disease (6) Hyperlipidemia Goals to Promote Your Health * To prevent worsening of your condition and complications * To maintain your health at the optimal level Directions to Meet Your Goals Take your medications as prescribed Follow your dietary instruction Follow activity as directed Keep your appointments as scheduled Take your immunizations and boosters as scheduled If your symptoms worsen call your PCP, if no PCP go to Urgent Care Center or Emergency Room Smoking is Dangerous to Your Health. Avoid second hand smoke Call the 24-hour hour crisis hotline for domestic abuse at Michael Plaza MD Aug 18, 2016 17:00
[2016-08-18 18:23] VITALS: O2SAT 92
--- NOTE | 2016-08-18 19:22 | EKG ---
Date Performed: 08/18/2016 Time Performed: 05:58:59 PTAGE: 81 years EKG: Sinus rhythm WITH FIRST DEGREE AV BLOCK NONSPECIFIC ST & T-WAVE ABNORMALITY ABNORMAL ECG PREVIOUS TRACING : 01/11/2014 02.31 DOCTOR: Kyrie Aguayo Interpretating Date/Time 08/18/2016 19:19:14
== END 2016-08-18 18:29 | disposition home or self-care (01) | DRG 378 ==
LOC: NEPA 14:22 → NEDA 16:56 → N05A 19:47
PROVIDERS: ADMIT Family Medicine; ATTEND Family Medicine
PROC: 0DJD8ZZ Inspection of Lower Intestinal Tract, Via Natural or Artificial Opening Endoscopic (ICD-10-PCS; principal; 2016-08-18 11:10)
DX: K92.2 Gastrointestinal hemorrhage, unspecified (principal); N17.9 Acute kidney failure, unspecified; E11.9 Type 2 diabetes mellitus without complications; Z79.84 Long term (current) use of oral hypoglycemic drugs; I12.9 Hypertensive chronic kidney disease with stage 1 through stage 4 chronic kidney disease, or unspecified chronic kidney disease; N18.3 Chronic kidney disease, stage 3 (moderate); D50.8 Other iron deficiency anemias; K57.30 Diverticulosis of large intestine without perforation or abscess without bleeding; K64.8 Other hemorrhoids; K64.4 Residual hemorrhoidal skin tags; E78.5 Hyperlipidemia, unspecified; I25.10 Atherosclerotic heart disease of native coronary artery without angina pectoris; Z95.5 Presence of coronary angioplasty implant and graft; Z79.82 Long term (current) use of aspirin
CPT/HCPCS: 71010; 80048; 80053; 81001; 82948; 85014; 85018; 85025; 85610; 85730; 86850; 86900; 86901; 93005; 96365; C9113; J7030; J7120